=== PATIENT | female | born 1950 | race Caucasian/White ===

== ENCOUNTER 2021-08-02 10:34 | Outpatient (CLI) | payer MEDICARE | END 2021-08-02 10:35 | disposition home or self-care (01) | LOC: CSHMAMMO 10:34 | PROVIDERS: ATTEND Obstetrics & Gynecology | DX: Z12.31 Encounter for screening mammogram for malignant neoplasm of breast (principal); Z80.3 Family history of malignant neoplasm of breast | CPT/HCPCS: 77063; 77067 ==

== ENCOUNTER 2022-08-04 12:08 | Outpatient (CLI) | payer MEDICARE | END 2022-08-04 12:09 | disposition home or self-care (01) | LOC: CSHMAMMO 12:08 | PROVIDERS: ATTEND Obstetrics & Gynecology | DX: Z12.31 Encounter for screening mammogram for malignant neoplasm of breast (principal); Z13.820 Encounter for screening for osteoporosis; M81.0 Age-related osteoporosis without current pathological fracture; M85.852 Other specified disorders of bone density and structure, left thigh; Z80.3 Family history of malignant neoplasm of breast | CPT/HCPCS: 77063; 77067; 77080 ==

== ENCOUNTER 2023-09-01 10:44 | Outpatient (CLI) | payer MEDICARE | END 2023-09-01 10:45 | disposition home or self-care (01) | LOC: CSHMAMMO 10:44 | PROVIDERS: ATTEND Obstetrics & Gynecology | DX: Z12.31 Encounter for screening mammogram for malignant neoplasm of breast (principal); Z80.3 Family history of malignant neoplasm of breast | CPT/HCPCS: 77063; 77067 ==